=== PATIENT | female | born 1985 | race Caucasian/White ===

== ENCOUNTER 2024-08-14 12:29 | Emergency (ER) | payer BC ==
[~2024-08-14] VITALS: Ht 170.2 cm; Wt 90.9 kg
[2024-08-14 12:32] VITALS: TEMP 98.8
[2024-08-14] MEDS ORDERED: PRED20TA PO (14:24)
[2024-08-14] MEDS: dexamethasone sod phosphate 10mg/ml inj IM ONE (14:43)
[2024-08-14 15:01] VITALS: BP 125/75; PULSE 74; RESP 16; O2SAT 98
== END 2024-08-14 15:26 | disposition home or self-care (01) ==
LOC: ER 12:30
DX: M54.12 Radiculopathy, cervical region (principal); R07.89 Other chest pain; Z88.2 Allergy status to sulfonamides
CPT/HCPCS: 71045; 93005; 96372; 99283; J1100

== ENCOUNTER 2025-04-23 21:18 | Emergency (ER) | payer BC ==
[~2025-04-23] VITALS: Ht 170.2 cm; Wt 101.0 kg
[2025-04-23 21:19] VITALS: TEMP 98.6
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
[2025-04-23] MEDS: bacitracin 15gm ointment TP ONE (21:44)
[2025-04-23 21:59] VITALS: BP 128/84; PULSE 84; RESP 16; O2SAT 98
== END 2025-04-23 22:00 | disposition home or self-care (01) ==
LOC: ER 21:18
DX: S01.81XA Laceration without foreign body of other part of head, initial encounter (principal); Z88.2 Allergy status to sulfonamides; X58.XXXA Exposure to other specified factors, initial encounter; Y93.89 Activity, other specified; Y92.89 Other specified places as the place of occurrence of the external cause; Y99.8 Other external cause status
CPT/HCPCS: 12011; 99283